=== PATIENT | female | born 1990 | race Caucasian/White ===

== ENCOUNTER 2016-11-25 00:24 | Emergency (ER) | payer MEDICAID ==
[~2016-11-25] VITALS: Ht 162.6 cm; Wt 79.2 kg
[~2016-11-25 00:24] MED LIST: CEFD300C37 PO; CEPH-368 PO; METR500T PO; ONDA4TAB10 PO; PREN1TAB14 PO
[2016-11-25] MEDS ORDERED: SODIUM CHLORIDE FLUSH 10ML SYR IVF ONE (01:00)
[2016-11-25] MEDS ORDERED: SODIUM CHLORIDE 0.9% 1,000ML IVBOLUS ONE (01:00)
[2016-11-25] MEDS ORDERED: ONDANSETRON 2MG/ML, 2ML IVPush ONE ×2 (01:00→04:00)
[2016-11-25 01:03] LABS: PATH.CAST-FLAG NOT PRESENT; SPERM-FLAG NOT PRESENT; SRC-FLAG NOT PRESENT; XTAL-FLAG NOT PRESENT; YLC-FLAG NOT PRESENT
[2016-11-25 01:13] LABS: HEMATOCRIT 36.1 % (34.6-47.8); HEMOGLOBIN 11.8 g/dL (11.7-16.4); WHITE BLOOD COUNT 7.5 x10^3/uL (3.4-10)
[2016-11-25 01:25] LABS: ASPARTATE AMINO TRANSFERASE 15 U/L (15-37); BLOOD UREA NITROGEN 17 mg/dL (7-18)
[2016-11-25] MEDS ORDERED: CEFTRIAXONE 250 MG IM ONE (01:30)
[2016-11-25] MEDS ORDERED: AZITHROMYCIN 500 MG TABLET PO ONE (01:30)
[2016-11-25] MEDS ORDERED: AZITHROMYCIN 250 MG TABLET ONE (01:54)
[2016-11-25] MEDS ORDERED: MORPHINE SULFATE 4 MG/ML, 1ML ONE ×2 (01:54→03:38)
[2016-11-25] MEDS ORDERED: CEFTRIAXONE 250 MG ONE (01:54)
[2016-11-25] MEDS: MORPHINE SULFATE 4 MG/ML, 1ML IVPush PRN ×2 (02:22→03:46)
[2016-11-25] MEDS ORDERED: ONDANSETRON 2MG/ML, 2ML ONE (03:38)
[2016-11-25 03:45] VITALS: BP 115/51
== END 2016-11-25 04:34 | disposition home or self-care (01) ==
LOC: ED 01:25
DX: N83.202 Unspecified ovarian cyst, left side (principal); N83.201 Unspecified ovarian cyst, right side; A56.09 Other chlamydial infection of lower genitourinary tract
CPT/HCPCS: 36415; 76830; 80053; 81001; 81003; 84703; 85025; 87086; 87210; 87491; 87591; 87808; 96361; 96372; 96374; 96375; 96376; 99285; J0696; J2405; J7030

== ENCOUNTER 2017-11-09 09:07 | Emergency (ER) | payer MEDICAID ==
[~2017-11-09] VITALS: Ht 162.6 cm; Wt 85.0 kg
[2017-11-09 09:13] VITALS: BP 125/80
[2017-11-09 09:57] LABS: BASOPHILS # (AUTO) 0.03 x10^3/uL (0-0.1); BASOPHILS % (AUTO) 0 % (0-1); EOSINOPHILS # (AUTO) 0.62 x10^3/uL (0-0.4); EOSINOPHILS % (AUTO) 10 % (1-7); LYMPHOCYTES % (AUTO) 31 % (22-44); MD NO; MEAN CORPUSCULAR HEMOGLOBIN 28.2 pg (27.0-34.8); MEAN CORPUSCULAR HGB CONC 33.8 g/dL (32.4-35.8); MEAN CORPUSCULAR VOLUME 83.4 fL (80-100); MEAN PLATELET VOLUME 7.6 fL (7.4-10.4); MONOCYTES # (AUTO) 0.45 x10^3/uL (0.2-0.8); MONOCYTES % (AUTO) 7 % (2-9); NEUTROPHILS # (AUTO) 3.18 x10^3/uL (1.8-6.8); NEUTROPHILS % (AUTO) 51 % (42-75); PLATELET COUNT 345 x10^3/uL (130-400); RED BLOOD COUNT 4.82 x10^6/uL (3.82-5.3); RED CELL DISTRIBUTION WIDTH 14.7 % (9.6-15.2)
[2017-11-09] MEDS ORDERED: KETOROLAC 30 MG/1 ML IM ONE (10:00)
[2017-11-09 10:06] LABS: ALBUMIN 3.5 g/dL (3.4-5.0); ANION GAP 6 mmol/L (5-15); CALCIUM 8.6 mg/dL (8.5-10.1); CHLORIDE 109 mmol/L (98-107); CREATININE 0.81 mg/dL (0.55-1.02)
[2017-11-09] MEDS ORDERED: KETOROLAC 30 MG/1 ML ONE (10:15)
[2017-11-09] MEDS ORDERED: SODIUM CHLORIDE FLUSH 10ML SYR IVF ONE (10:30)
[2017-11-09] MEDS ORDERED: OMNIPAQUE 350 MG/ML, 100ML BOTTLE ONE (11:15)
== END 2017-11-09 11:55 | disposition home or self-care (01) ==
LOC: ED 11:10
DX: M94.0 Chondrocostal junction syndrome [Tietze] (principal); R09.89 Other specified symptoms and signs involving the circulatory and respiratory systems; R05 Cough
CPT/HCPCS: 36415; 71046; 71275; 80048; 82040; 85025; 85379; 93005; 96372; 99285; J1885; Q9967

== ENCOUNTER 2017-11-14 21:08 | Emergency (ER) | payer MEDICAID ==
[~2017-11-14] VITALS: Ht 162.6 cm; Wt 89.0 kg
[2017-11-14 21:10] VITALS: BP 127/85
[2017-11-14] MEDS ORDERED: NAPR-856 PO (21:26)
[2017-11-14] MEDS ORDERED: DIPHENHYDRAMINE 25 MG CAPSULE PO ONE (21:30)
[2017-11-14] MEDS ORDERED: FAMOTIDINE 20 MG TABLET ONE (21:37)
[2017-11-14] MEDS ORDERED: DIPHENHYDRAMINE 25 MG CAPSULE ONE (21:37)
[2017-11-14] MEDS ORDERED: FAMOTIDINE 20 MG TABLET PO ONE (22:00)
== END 2017-11-14 22:09 | disposition home or self-care (01) ==
LOC: ED 22:03
DX: L25.8 Unspecified contact dermatitis due to other agents (principal); T39.315A Adverse effect of propionic acid derivatives, initial encounter; Y92.89 Other specified places as the place of occurrence of the external cause
CPT/HCPCS: 93005; 99284; J7512; Q0163

== ENCOUNTER 2017-11-16 01:09 | Inpatient (IN) | payer MEDICAID, OTHER ==
[2017-11-16] VITALS (14 sets, daily range): BP systolic 101–133; BP diastolic 62–85
[~2017-11-16] VITALS: Ht 162.6 cm; Wt 90.2 kg
[~2017-11-16 01:09] MED LIST changes: +NAPR-856 PO
[2017-11-16 01:55] LABS: BASOPHILS # (AUTO) 0.03 x10^3/uL (0-0.1); BASOPHILS % (AUTO) 0 % (0-1); EOSINOPHILS # (AUTO) 0.36 x10^3/uL (0-0.4); EOSINOPHILS % (AUTO) 4 % (1-7); LYMPHOCYTES # (AUTO) 3.69 x10^3/uL (1-3.4); LYMPHOCYTES % (AUTO) 41 % (22-44); MD NO; MEAN CORPUSCULAR HGB CONC 34.3 g/dL (32.4-35.8); MEAN CORPUSCULAR VOLUME 84.6 fL (80-100); MEAN PLATELET VOLUME 7.8 fL (7.4-10.4); MONOCYTES # (AUTO) 0.84 x10^3/uL (0.2-0.8); MONOCYTES % (AUTO) 9 % (2-9); NEUTROPHILS # (AUTO) 4.14 x10^3/uL (1.8-6.8); NEUTROPHILS % (AUTO) 46 % (42-75); PLATELET COUNT 295 x10^3/uL (130-400); RED BLOOD COUNT 4.39 x10^6/uL (3.82-5.3); RED CELL DISTRIBUTION WIDTH 15.1 % (9.6-15.2)
[2017-11-16 02:03] LABS: INTERNATIONAL NORMALIZED RATIO 0.98 (0.93-1.1); PROTHROMBIN TIME 10.1 Seconds (9.6-11.5)
[2017-11-16] MEDS ORDERED: OMNIPAQUE 350 MG/ML, 100ML BOTTLE ONE (02:07)
[2017-11-16 02:08] LABS: TROPONIN I < 0.015 ng/mL (0.000-0.045)
[2017-11-16] MEDS ORDERED: ALTEPLASE 1 MG/ML ONE (02:26)
[2017-11-16] MEDS ORDERED: ALTEPLASE IV ONE (02:30)
[2017-11-16] MEDS ORDERED: ALTEPLASE 8 MG in SYRINGE 1 EA IVPush ONE (02:30)
[2017-11-16] MEDS ORDERED: DOCUSATE 100 MG CAPSULE PO PRN (03:30)
[2017-11-16] MEDS ORDERED: ACETAMINOPHEN 325 MG TABLET PO PRN (03:30)
[2017-11-16] MEDS ORDERED: morphine SULFATE 10 MG/ML, 1ML IVPush PRN (03:30)
[2017-11-16] MEDS ORDERED: ONDANSETRON 4 MG TABLET PO PRN (03:30)
[2017-11-16] MEDS ORDERED: HYDROcodone/APAP 5/325 TABLET PO PRN (03:30)
[2017-11-16] MEDS ORDERED: ONDANSETRON ODT 4 MG PO PRN (04:00)
[2017-11-16 09:56] LABS: AMPHETAMINE SCREEN, URINE Negative (Negative); BARBITURATE SCREEN, URINE Negative (Negative); BENZODIAZEPINE SCREEN, URINE Negative (Negative); CANNABINOID SCREEN, URINE Negative (Negative); COCAINE SCREEN, URINE Negative (Negative); METHADONE SCREEN, URINE Negative (Negative); OPIATE SCREEN, URINE Negative (Negative)
[2017-11-17 04:29] VITALS: BP 136/82
[2017-11-17 04:56] LABS: CHOL/HDL RATIO 3.4; LDL/HDL RATIO 1.9 (0.5-3.0)
== END 2017-11-17 11:19 | disposition home or self-care (01) | DRG 883 ==
LOC: ED 02:02 → EDIP 02:27 → CCU 05:42 → DCLOUNGE 11-17 11:07
PROVIDERS: ADMIT Family Medicine; ATTEND Family Medicine
DX: F68.10 Factitious disorder imposed on self, unspecified (principal); G43.009 Migraine without aura, not intractable, without status migrainosus; F41.9 Anxiety disorder, unspecified; Z72.89 Other problems related to lifestyle; Z98.51 Tubal ligation status; Z88.6 Allergy status to analgesic agent
CPT/HCPCS: 36415; 70450; 70496; 70498; 70551; 71045; 80047; 80061; 80307; 83735; 84484; 84703; 85025; 85610; 85730; 87081; 93005; 93306; 96365; 96375; J2997; Q9967

== ENCOUNTER 2018-03-22 05:08 | Emergency (ER) | payer SELFPAY ==
[~2018-03-22] VITALS: Ht 162.6 cm; Wt 85.4 kg
[2018-03-22 05:12] VITALS: BP 132/81
--- NOTE | 2018-03-22 05:30 | NUR ---
pt presented with c/o abd pain, nausea that started yesterday. pt up to rr with steady gait. urine sample sent. siderails up x2, family at bedside, call light within reach.
[2018-03-22 05:39] LABS: HCG UR SG 1.021 (1.003-1.030); MICROSCOPIC AUTO
[2018-03-22 05:42] LABS: CULTURE INDICATED? YES
== END 2018-03-22 06:04 | disposition home or self-care (01) ==
LOC: ED 05:49
DX: N39.0 Urinary tract infection, site not specified (principal); R11.0 Nausea
CPT/HCPCS: 81001; 81025; 87086; 99283

== ENCOUNTER 2018-05-15 17:16 | Emergency (ER) | payer SELFPAY ==
[~2018-05-15] VITALS: Ht 162.6 cm; Wt 84.5 kg
[2018-05-15 18:01] LABS: BASOPHILS # (AUTO) 0.02 x10^3/uL (0-0.1); BASOPHILS % (AUTO) 0 % (0-1); EOSINOPHILS # (AUTO) 0.16 x10^3/uL (0-0.4); EOSINOPHILS % (AUTO) 2 % (1-7); LYMPHOCYTES # (AUTO) 2.23 x10^3/uL (1-3.4); LYMPHOCYTES % (AUTO) 32 % (22-44); MD NO; MEAN CORPUSCULAR HEMOGLOBIN 29.4 pg (27.0-34.8); MEAN CORPUSCULAR VOLUME 86.4 fL (80-100); MEAN PLATELET VOLUME 7.6 fL (7.4-10.4); MONOCYTES # (AUTO) 0.43 x10^3/uL (0.2-0.8); MONOCYTES % (AUTO) 6 % (2-9); NEUTROPHILS # (AUTO) 4.23 x10^3/uL (1.8-6.8); NEUTROPHILS % (AUTO) 60 % (42-75); PLATELET COUNT 326 x10^3/uL (130-400); RED BLOOD COUNT 4.66 x10^6/uL (3.82-5.3); RED CELL DISTRIBUTION WIDTH 13.6 % (9.6-15.2)
[2018-05-15 18:12] LABS: ALANINE AMINOTRANSFERASE 24 U/L (12-78); ALBUMIN 3.7 g/dL (3.4-5.0); ANION GAP 5 mmol/L (5-15); CALCIUM 8.8 mg/dL (8.5-10.1); CHLORIDE 107 mmol/L (98-107)
[2018-05-15 18:17] LABS: ALKALINE PHOSPHATASE 94 U/L (45-117); BILIRUBIN,TOTAL 0.2 mg/dL (0.2-1.0); CREATININE 0.72 mg/dL (0.55-1.02); TOTAL PROTEIN 7.6 g/dL (6.4-8.2)
--- NOTE | 2018-05-15 19:43 | NUR ---
PT HAD IUD REMOVED 3 DAYS AGO. PT REPORTS SHE BLED A LITTLE AFTER THE FIRST DAY. PT NOW REPORTS SHE IS PASSING CLOTS AND SATURATING PADS. PT PLACED ON OB BED AND CLIENT SUPPORT ANALYST EXAM AT BEDSIDE. PT RESTING AWAITNG FURHTER ORDERS. CALL LIGHT IN REACH.
--- NOTE | 2018-05-15 20:00 | NUR ---
BRETT POLANCO COLLECTED BY RICHIE OLIVARES.
--- NOTE | 2018-05-15 20:10 | NUR ---
[facility] IS READY
[2018-05-15 20:28] LABS: MICROSCOPIC NOT IND
[2018-05-15 20:33] LABS: CULTURE INDICATED? NO
--- NOTE | 2018-05-15 22:09 | NUR ---
pt to us
--- NOTE | 2018-05-15 22:51 | NUR ---
PT BACK FROM US, REPORTING STILL BLEEDING. AWAITING FURTHER ORDERS.
--- NOTE | 2018-05-15 23:09 | NUR ---
REPORT TO EDILIA OLIVARES.
--- NOTE | 2018-05-15 23:22 | NUR ---
REPORT FROM MARSHALL CRONIN. PT SITTING UP IN [facility], ELOY NOTED. PT DENIES NEED FOR PAIN OR NAUSEA MEDICATIONS. PT PWD; DENIES CP/LEE/DIZZINESS/WEAKNESS FRIEND AT BEDSIDE. CHART UP FOR RECHECK. AWAITING DISPO
--- NOTE | 2018-05-16 00:41 | NUR ---
PT UPDATED TO POC (HEAD CHAR FILTER TANK TENDER TO SEE/RPT LABS) AND DEMONSTRATES UNDERSTANDING. TECH AT BS TO COMPLETED ORTHOS.
[2018-05-16 00:44] VITALS: BP 108/72
--- NOTE | 2018-05-16 00:45 | NUR ---
PT WITH POSITIVE ORTHOSTATIC VS. REPORTS DIZZINESS. REMAINS PWD. ERP AWARE. IV PLACED. NO IVF ORDERED. AWAITING MERCHANDISING DIRECTOR CONSULT
[2018-05-16 00:47] LABS: BASOPHILS # (AUTO) 0.02 x10^3/uL (0-0.1); BASOPHILS % (AUTO) 0 % (0-1); EOSINOPHILS # (AUTO) 0.27 x10^3/uL (0-0.4); EOSINOPHILS % (AUTO) 3 % (1-7); LYMPHOCYTES # (AUTO) 2.75 x10^3/uL (1-3.4); LYMPHOCYTES % (AUTO) 33 % (22-44); MD NO; MEAN CORPUSCULAR HEMOGLOBIN 29.5 pg (27.0-34.8); MEAN CORPUSCULAR HGB CONC 34.1 g/dL (32.4-35.8); MEAN CORPUSCULAR VOLUME 86.5 fL (80-100); MEAN PLATELET VOLUME 7.4 fL (7.4-10.4); MONOCYTES # (AUTO) 0.55 x10^3/uL (0.2-0.8); MONOCYTES % (AUTO) 7 % (2-9); NEUTROPHILS % (AUTO) 57 % (42-75); PLATELET COUNT 334 x10^3/uL (130-400); RED BLOOD COUNT 4.49 x10^6/uL (3.82-5.3); RED CELL DISTRIBUTION WIDTH 13.6 % (9.6-15.2)
--- NOTE | 2018-05-16 01:36 | NUR ---
DC EDUCATION PROVIDED, PT DEMONSTRATES UNDERSTANDING. PT ABLE TO DRESS SELF AND TRANSFER TO WHEELCHAIR WO ASSISTANCE AND WITH MINIMAL DIZZINESS. PT REMAINS PWD. PT WHEELED TO DC WITH RN AND FRIEND. FRIEND TO TRANSPORT PT HOME.
== END 2018-05-16 01:39 | disposition home or self-care (01) ==
LOC: ED 20:29
DX: N93.8 Other specified abnormal uterine and vaginal bleeding (principal)
CPT/HCPCS: 36415; 76830; 80053; 81003; 84703; 85025; 99284

== ENCOUNTER 2018-05-16 21:40 | Emergency (ER) | payer SELFPAY ==
[~2018-05-16] VITALS: Ht 162.6 cm; Wt 86.4 kg
[2018-05-16 21:45] VITALS: BP 122/83
[2018-05-16 22:08] LABS: BASOPHILS # (AUTO) 0.02 x10^3/uL (0-0.1); BASOPHILS % (AUTO) 0 % (0-1); EOSINOPHILS # (AUTO) 0.29 x10^3/uL (0-0.4); EOSINOPHILS % (AUTO) 4 % (1-7); LYMPHOCYTES # (AUTO) 2.51 x10^3/uL (1-3.4); LYMPHOCYTES % (AUTO) 33 % (22-44); MD NO; MEAN CORPUSCULAR HEMOGLOBIN 28.7 pg (27.0-34.8); MEAN PLATELET VOLUME 7.7 fL (7.4-10.4); MONOCYTES # (AUTO) 0.56 x10^3/uL (0.2-0.8); MONOCYTES % (AUTO) 8 % (2-9); NEUTROPHILS # (AUTO) 4.19 x10^3/uL (1.8-6.8); NEUTROPHILS % (AUTO) 55 % (42-75); PLATELET COUNT 326 x10^3/uL (130-400); RED BLOOD COUNT 4.45 x10^6/uL (3.82-5.3); RED CELL DISTRIBUTION WIDTH 13.6 % (9.6-15.2)
== END 2018-05-17 00:13 | disposition home or self-care (01) ==
LOC: ED 22:57
DX: N93.8 Other specified abnormal uterine and vaginal bleeding (principal); Z30.432 Encounter for removal of intrauterine contraceptive device; F41.1 Generalized anxiety disorder
CPT/HCPCS: 36415; 85025; 99283

== ENCOUNTER 2019-01-13 16:27 | Emergency (ER) | payer MEDICAID, OTHER ==
[~2019-01-13] VITALS: Ht 162.6 cm; Wt 93.5 kg
--- NOTE | 2019-01-13 16:29 | NUR ---
HEAT TREAT FURNACE OPERATOR. NO ANSWER TO TRIAGE X1 FROM LOBBY AT THIS TIME.
[2019-01-13 16:37] VITALS: BP 122/76
--- NOTE | 2019-01-13 16:55 | NUR ---
PT HERE FOR LACERATION TO RIGHT HAND SUSTAINED WHEN REACHING INTO GARBAGE DISPOSAL TODAY. SMALL LACERATION NOTED ON RIGHT HAND. NO BLEEDING. TINGLING PRESENT IN RIGHT THUMB. [place]. SITTING ON STOOL IN ROOM WITH TWO CHILDREN WITH HER WHO ARE ON THE GURNEY.
[2019-01-13] MEDS ORDERED: LIDOCAINE-MPF 1%, 5ML ONE (17:00)
--- NOTE | 2019-01-13 17:11 | NUR ---
SUTURES BEING PLACED NOW.
[2019-01-13] MEDS ORDERED: DIPH,PERTUSS(ACELL),TET VAC/PF 0.5 ML IM-VACC ONE ×2 (17:23→18:00)
--- NOTE | 2019-01-13 17:29 | NUR ---
PT MEDICATED PER EMAR.
[2019-01-13] MEDS ORDERED: LIDOCAINE-MPF 1%, 5ML INFIL ONE (17:30)
== END 2019-01-13 17:38 | disposition home or self-care (01) ==
LOC: ED 17:26
DX: S61.411A Laceration without foreign body of right hand, initial encounter (principal); W26.8XXA Contact with other sharp object(s), not elsewhere classified, initial encounter; Y93.89 Activity, other specified; Y92.009 Unspecified place in unspecified non-institutional (private) residence as the place of occurrence of the external cause; Y99.8 Other external cause status
CPT/HCPCS: 12001; 90471; 90715; 99283

== ENCOUNTER 2019-03-19 19:28 | Emergency (ER) | payer MEDICAID ==
[~2019-03-19] VITALS: Ht 162.6 cm; Wt 94.1 kg
[2019-03-19] MEDS ORDERED: ACETAMINOPHEN 325 MG TABLET ONE (21:26)
[2019-03-19] MEDS ORDERED: OSELTAMIVIR 75 MG CAPSULE PO ONE (21:30)
[2019-03-19] MEDS ORDERED: ACETAMINOPHEN 325 MG TABLET PO ONE (21:30)
[2019-03-19] MEDS ORDERED: OSELTAMIVIR 75 MG CAPSULE ONE (21:43)
[2019-03-19 22:31] VITALS: BP 118/78
== END 2019-03-19 22:32 | disposition home or self-care (01) ==
LOC: ED 22:10
DX: J10.1 Influenza due to other identified influenza virus with other respiratory manifestations (principal)
CPT/HCPCS: 99283

== ENCOUNTER 2019-07-28 15:37 | Emergency (ER) | payer MEDICAID ==
[~2019-07-28] VITALS: Ht 162.6 cm; Wt 97.8 kg
[2019-07-28] MEDS ORDERED: ONDANSETRON ODT 4 MG PO ONE (16:00)
[2019-07-28] MEDS ORDERED: ONDANSETRON ODT 4 MG ONE (16:05)
--- NOTE | 2019-07-28 16:16 | NUR ---
Pt to US at this time
[2019-07-28 16:17] LABS: BASOPHILS # (AUTO) 0.03 x10^3/uL (0-0.1); BASOPHILS % (AUTO) 0 % (0-1); EOSINOPHILS % (AUTO) 4 % (1-7); LYMPHOCYTES # (AUTO) 2.18 x10^3/uL (1-3.4); LYMPHOCYTES % (AUTO) 19 % (22-44); MD NO; MEAN CORPUSCULAR HEMOGLOBIN 27.1 pg (27.0-34.8); MEAN CORPUSCULAR HGB CONC 32.8 g/dL (32.4-35.8); MEAN CORPUSCULAR VOLUME 82.8 fL (80-100); MEAN PLATELET VOLUME 7.3 fL (7.4-10.4); MONOCYTES # (AUTO) 0.77 x10^3/uL (0.2-0.8); MONOCYTES % (AUTO) 7 % (2-9); NEUTROPHILS # (AUTO) 7.84 x10^3/uL (1.8-6.8); NEUTROPHILS % (AUTO) 70 % (42-75); PLATELET COUNT 419 x10^3/uL (130-400); RED BLOOD COUNT 4.77 x10^6/uL (3.82-5.3); RED CELL DISTRIBUTION WIDTH 14.8 % (9.6-15.2)
[2019-07-28 16:25] LABS: ALBUMIN 3.4 g/dL (3.4-5.0); ANION GAP 8 mmol/L (5-15); CALCIUM 8.6 mg/dL (8.5-10.1); CHLORIDE 108 mmol/L (98-107)
[2019-07-28 16:29] LABS: CULTURE INDICATED? YES; MICROSCOPIC INDICATED
[2019-07-28] MEDS ORDERED: PHENAZOPYRIDINE 200 MG TABLET PO ONE (16:30)
[2019-07-28 16:32] LABS: ALANINE AMINOTRANSFERASE 43 U/L (12-78); ALKALINE PHOSPHATASE 89 U/L (45-117); BILIRUBIN,TOTAL 0.2 mg/dL (0.2-1.0); CREATININE 0.78 mg/dL (0.55-1.02); TOTAL PROTEIN 7.7 g/dL (6.4-8.2)
[2019-07-28] MEDS ORDERED: PHENAZOPYRIDINE 200 MG TABLET ONE (16:59)
--- NOTE | 2019-07-28 17:00 | NUR ---
Pt back from US
--- NOTE | 2019-07-28 17:54 | NUR ---
GAVE PT DC INSTRUCTIONS. PT VERBALIZED UNDERSTANDING
[2019-07-28 17:55] VITALS: BP 124/68
== END 2019-07-28 17:57 | disposition home or self-care (01) ==
LOC: ED 17:02
DX: N83.291 Other ovarian cyst, right side (principal); R10.30 Lower abdominal pain, unspecified
CPT/HCPCS: 36415; 76830; 80053; 81001; 83690; 84703; 85025; 87077; 87086; 87147; 99284; Q0162; 87186

== ENCOUNTER 2020-05-04 16:19 | Emergency (ER) | payer MEDICAID ==
[~2020-05-04] VITALS: Ht 162.6 cm; Wt 99.9 kg
--- NOTE | 2020-05-04 17:07 | NUR ---
PROVIDER AT BEDSIDE FOR ASSESSMENT AND TO DISCUSS PLAN OF CARE
--- NOTE | 2020-05-04 17:08 | NUR ---
PT COMES IN TODAY C/O RUQ ABDOMINAL PAIN 10/31 SINCE 05/03/20. PT STATES INTERMITTENT NAUSEA AND STABBING PAIN. MONITORS CONNECTED. UA COLLECTED. WARM BLANKETS PROVIDED. CALL LIGHT W/IN REACH.
[2020-05-04] MEDS ORDERED: ONDANSETRON 2MG/ML, 2ML ONE (17:20)
[2020-05-04] MEDS ORDERED: MORPHINE SULFATE 4 MG/ML, 1ML ONE (17:20)
[2020-05-04] MEDS ORDERED: ONDANSETRON 2MG/ML, 2ML IVPush ONE (17:30)
[2020-05-04] MEDS ORDERED: MORPHINE SULFATE 4 MG/ML, 1ML IVPush PRN (17:30)
[2020-05-04] MEDS ORDERED: SODIUM CHLORIDE 0.9% 1,000ML IVBOLUS ONE (17:30)
[2020-05-04 17:36] LABS: MICROSCOPIC NOT IND
--- NOTE | 2020-05-04 17:38 | NUR ---
PT RESTING ON GURNEW TRIPOLI. ORDERED MEDICATIONS ADMINISTERED AND INFUSING. UA COLLECTED AND SENT TO LAB. VSS. NAD. CALL LIGHT W/IN REACH
[2020-05-04 17:49] LABS: BASOPHILS % (AUTO) 1 % (0-1); EOSINOPHILS % (AUTO) 7 % (1-7); LYMPHOCYTES % (AUTO) 30 % (22-44); MEAN CORPUSCULAR HEMOGLOBIN 27.8 pg (27.0-34.8); MEAN PLATELET VOLUME 7.2 fL (7.4-10.4); MONOCYTES % (AUTO) 6 % (2-9); NEUTROPHILS % (AUTO) 57 % (42-75); PLATELET COUNT 389 x10^3/uL (130-400); RED BLOOD COUNT 4.58 x10^6/uL (3.82-5.3); RED CELL DISTRIBUTION WIDTH 15.2 % (9.6-15.2)
[2020-05-04 17:51] LABS: MD NO
[2020-05-04 17:56] LABS: ALBUMIN 3.4 g/dL (3.4-5.0); ANION GAP 6 mmol/L (5-15); CALCIUM 8.9 mg/dL (8.5-10.1); CHLORIDE 109 mmol/L (98-107)
[2020-05-04 18:03] LABS: ALANINE AMINOTRANSFERASE 33 U/L (12-78); ALKALINE PHOSPHATASE 90 U/L (45-117); BILIRUBIN,TOTAL 0.2 mg/dL (0.2-1.0); CREATININE 0.77 mg/dL (0.55-1.02); TOTAL PROTEIN 7.7 g/dL (6.4-8.2)
[2020-05-04 18:43] VITALS: BP 143/97
--- NOTE | 2020-05-04 18:43 | NUR ---
PT RESTING ON GURNEY. C/O HEADACHE FOLLOWING MEDICATION ADMINISTRATION. AWARE. ROOM LIGHTS TURNED OFF FOR COMFORT. VSS. NAD. CALL LIGHT W/IN REACH.
--- NOTE | 2020-05-04 18:55 | NUR ---
REPORT GIVEN TO NIHARIKA OLIVARES
--- NOTE | 2020-05-04 19:03 | NUR ---
First contact with pt, pt sitting up actively vomiting. Reports tolerable pain, waiting for CT scan.
--- NOTE | 2020-05-04 19:04 | NUR ---
Infromed ERP of active n/v request for additonal meds. Will continue to monitor.
--- NOTE | 2020-05-04 19:17 | NUR ---
Going for CT scan now.
[2020-05-04] MEDS ORDERED: PROCHLORPERAZINE 5 MG/ML, 2ML ONE (19:20)
[2020-05-04] MEDS ORDERED: PROCHLORPERAZINE 5 MG/ML, 2ML IVPush ONE (19:30)
[2020-05-04] MEDS ORDERED: OMNIPAQUE 350 MG/ML, 100ML BOTTLE ONE (19:36)
--- NOTE | 2020-05-04 20:58 | NUR ---
No change in assessment. No more n/v.
--- NOTE | 2020-05-04 21:36 | NUR ---
iv dc cath intact, pt dc home with instruct. Pt verbalizes understanding and instruct to f/u with pcp return to er if worse or concerns.
== END 2020-05-04 22:10 | disposition home or self-care (01) ==
LOC: ED 16:49
DX: N83.291 Other ovarian cyst, right side (principal); N93.9 Abnormal uterine and vaginal bleeding, unspecified; R10.31 Right lower quadrant pain; R11.0 Nausea
CPT/HCPCS: 36415; 74177; 76830; 80053; 81003; 84703; 85025; 96374; 96375; 99285; J0780; J2270; J2405; J7030; Q9967